=== PATIENT | female | born 1970 | race Hispanic/Latino ===

== ENCOUNTER 2021-04-21 12:37 | Emergency (ER) | payer SELFPAY ==
--- OUTSIDE RECORDS SUMMARY | 2021-04-21 12:40 | XMS REPORT | Continuity of Care Document ---
:1970 Author Organization [facility] Address [address] [place] [address] Dr. Alaniz [address] [place] [id number] Care Team Providers Name Role Phone Sarika MONTANO Attending Clinician Unavailable Sarika MONTANO Admitting Clinician Unavailable Problems This patient has no known problems. Allergies, Adverse Reactions, Alerts This patient has no known allergies or adverse reactions. Medications This patient has no known medications. Procedures This patient has no known procedures. Encounters Start End Encounter Admission Attending Care Care Encounter Source Date/Time Date/Time Type Type Clinicians Facility Department ID 2016-09-15 2016-09-16 Emergency [facility] [id number] [facility] 19:14:00 20:17:00 [facility] Results This patient has no known results.
[2021-04-21 16:25] LABS: Absolute Lymphocytes (CBC) 1.8 K/uL (0.7-4.9); Basophils % 0.6 % (0-1.3); Hematocrit 45.2 % (36.0-45.0); MPV 8.2 fL (7.6-11.3); RBC Red Blood Cell Count 5.63 M/uL (3.86-4.86)
[2021-04-21 16:28] LABS: Urine Blood Negative (Negative); Urine Glucose Negative (Negative); Urine Protein Negative (Negative)
--- NOTE | 2021-04-21 16:28 | RAD REPORT ---
EXAM DESCRIPTION: CT - Stone Protocol - 04/21/2021 3:45 pm CLINICAL HISTORY: Flank pain. ABD PAIN COMPARISON: No comparisons TECHNIQUE: Axial images were obtained without oral or IV contrast. Lack of contrast limits solid org an and vascular assessment. The [id number] spans the entirety of the system partially obscuring uppermost abdomen and lung bases. Coronal reformatted images were obtained and reviewed. All CT scans are performed using dose optimization technique as appropriate and may include automated exposure control or mA/KV adjustment according to patient size. FINDINGS: The lower lung carter are clear. Imaged portions of the liver and spleen show no suspicious findings on non-contrast imaging. The panc reas and adrenal glands are normal. No pathologic lymphadenopathy in the abdomen or pelvis. No urinary tract stones or obstructive uropathy. No bowel obstruction, free air, free fluid or abscess. Normal appendix noted. No significant bony abnormality. IMPRESSION: No urinary tract stones or obstructive uropathy.
[2021-04-21 17:10] LABS: Urine Bacteria <20 /HPF (<20); Urine RBC NONE SEEN /HPF (NONE SEEN)
[2021-04-21 17:19] LABS: ALT/SGPT 27 U/L (12-78); AST/SGOT 16 U/L (15-37); Albumin 4.2 g/dL (3.4-5.0); Alkaline Phosphatase 85 U/L (45-117); BUN Blood Urea Nitrogen 11 mg/dL (7-18); Bicarbonate 27 mmol/L (21-32); Bilirubin Direct < 0.1 mg/dL (0-0.2); Bilirubin Total 0.4 mg/dL (0.2-1.0); Glucose Level 97 mg/dL (74-106); Lipase 123 U/L (73-393); Potassium 4.3 mmol/L (3.5-5.1); Protein, Total 8.2 g/dL (6.4-8.2); Sodium Level 138 mmol/L (136-145)
--- NOTE | 2021-04-21 17:45 | EDPHYS ---
Physician Documentation [facility] Name: Suze Garcia Age: 50 yrs Sex: Female : 1970 Arrival Date: 04/21/2021 Time: 12:43 Bed 6 Private MD: ED Physician Irvin Henderson HPI: 04/21 15:58 This 50 yrs old Female presents to ER via Ambulatory with complaints of ma2 Abdominal Pain. 15:58 The patient presents with abdominal pain. Associated signs and symptoms: Pertinent ma2 negatives: blood in stools, diarrhea, fever, hematuria. Severity of pain: At its worst the pain was moderate in the emergency department the pain is unchanged. The patient has not experienced similar symptoms in the past. APPOINTMENT SETTER: 16:47 LMP N/A - Post-menopause al4 Historical: - Allergies: 12:58 No Known Allergies; ss - Home Meds: 12:58 None [Active]; ss - PMHx: 12:58 None; ss - PSHx: 12:58 ectopic ; ss - Immunization history:: Client reports receiving the 1st dose of the Covid vaccine. - Social history:: Smoking status: Patient denies any tobacco usage or history of. Patient/guardian denies using alcohol, street drugs, The patient lives with family. - Family history:: not pertinent. ROS: 15:58 Constitutional: Negative for fever, chills, and weight loss. ma2 15:58 All other systems are negative. Exam: 15:58 Constitutional: This is a well developed, well nourished patient who is awake, alert, ma2 and in no acute distress. Neck: Trachea midline, no thyromegaly or masses palpated, and no cervical lymphadenopathy. Supple, full range of motion without nuchal rigidity, or vertebral point tenderness. No Meningismus. Chest/axilla: Normal chest wall appearance and motion. Nontender with no deformity. No lesions are appreciated. Cardiovascular: Regular rate and rhythm with a normal S1 and S2. No gallops, murmurs, or rubs. Normal PMI, no JVD. No pulse deficits. Respiratory: Lungs have equal breath sounds bilaterally, clear to auscultation and percussion. No rales, rhonchi or wheezes noted. No increased work of breathing, no retractions or nasal flaring. Abdomen/GI: Soft, non-tender, with normal bowel sounds. No distension or tympany. No guarding or rebound. No evidence of tenderness throughout. Back: No spinal tenderness. No costovertebral tenderness. Full range of motion. 15:58 MS/ Extremity: Pulses equal, no cyanosis. Neurovascular intact. Full, normal range ma2 of motion. Neuro: Awake and alert, GCS 15, oriented to person, place, time, and situation. Cranial nerves II-XII grossly intact. Motor strength 5/5 in all extremities. Sensory grossly intact. Cerebellar exam normal. Normal gait. Vital Signs: 12:58 BP 173 / 104 (man/); Pulse 81; Resp 16; Temp 98.0(TE); Pulse Ox 100% on R/A; Weight ss 79.38 kg; Height 5 ft. 1 in. (154.94 cm); Pain 5/10; 15:07 BP 132 / 73; Pulse 72; Resp 18 S; Temp 98.5; Pulse Ox 98% on R/A; al4 16:23 BP 133 / 72; Pulse 72; Resp 18; Pulse Ox 99% ; al4 17:15 BP 134 / 82; Pulse 72; Resp 18 S; Pulse Ox 97% on R/A; al4 17:45 BP 110 / 72; Pulse 81; Resp 18 S; Pulse Ox 98% on R/A; al4 12:58 Body Mass Index 33.07 (79.38 kg, 154.94 cm) ss MDM: 14:58 Patient medically screened. [facility] 15:58 Differential diagnosis: diverticulitis, Dysmenorrhea, Endometriosis, gastritis, ma2 Hepatitis. 17:44 Data reviewed: vital signs, nurses notes. Counseling: I had a detailed discussion with ma2 the patient and/or guardian regarding: the historical points, exam findings, and any diagnostic results supporting the discharge/admit diagnosis, the presence of at least one elevated blood pressure reading (>120/80) during this emergency department visit, the need for outpatient follow up. Response to treatment: the patient's symptoms have markedly improved after treatment. 04/21 15:27 Order name: Basic Metabolic Panel; Complete Time: 17:43 [facility] 04/21 15:27 Order name: CBC with Diff; Complete Time: 16:33 [facility] 04/21 15:27 Order name: Hepatic Function; Complete Time: 17:43 ma2 04/21 15:27 Order name: Lipase; Complete Time: 17:43 ma2 04/21 15:27 Order name: Urine Microscopic Only; Complete Time: 17:43 co2 04/21 16:28 Order name: Urine Dipstick-Ancillary; Complete Time: 16:33 [facility] 04/21 15:27 Order name: Stone Protocol CT; Complete Time: 16:33 ma2 04/21 15:27 Order name: Urine Dipstick-Ancillary (obtain specimen); Complete Time: 16:48 co2 04/21 15:27 Order name: IV Saline Lock; Complete Time: 16:48 co2 04/21 15:27 Order name: NPO; Complete Time: 15:42 co2 04/21 16:31 Order name: Urine Dipstick-Ancillary [facility] 04/21 16:32 Order name: Labs - recollect needed: recollect green top hemolyzed; Complete Time: 16:48eb Administered Medications: No medications were administered Disposition Summary: 04/21/21 17:44 Discharge Ordered Location: Home ma2 Condition: Stable ma2 Diagnosis - Low back pain - left flank ma2 Followup: ma2 - With: Private Physician - When: Tomorrow - Reason: If symptoms return, Continuance of care Discharge Instructions: - Discharge Summary Sheet ma2 - Musculoskeletal Pain ma2 Forms: - Medication Reconciliation Form ma2 - Thank You Letter ma2 - Antibiotic Education ma2 - Prescription Opioid Use ma2 Prescriptions: - Cyclobenzaprine 10 mg Oral Tablet - take 1 tablet by ORAL route every 8 hours As needed; 30 tablet; Refills: 0, ma2 Product Selection Permitted - Diclofenac Sodium 75 mg Oral Tablet Sustained Release - take 1 tablet by ORAL route 2 times per day; 30 tablet; Refills: 0, Product ma2 Selection Permitted Signatures: Dispatcher [employer] [facility] Michelle Erickson RN RN Irvin Yates MD MD co2 Glory Bravo
--- NOTE | 2021-04-21 17:45 | ER ---
Nurse's Notes [facility] Name: Suze Garcia Age: 50 yrs Sex: Female : 1970 Arrival Date: 04/21/2021 Time: 12:43 Bed 6 Private MD: Diagnosis: Low back pain-left flank Presentation: 04/21 12:57 Chief complaint: Patient states: L lower back pain that began 4 days ago. Pt states, "I ss think it's just muscle, but my daughter is pushing more for it to be a kidney stone.". Coronavirus screen: Client denies travel out of the [place] in the last 14 days. Ebola Screen: Patient denies exposure to infectious person. Patient denies travel to an Ebola-affected area in the 21 days before illness onset. Initial Sepsis Screen: Does the patient meet any 2 criteria? No. Patient's initial sepsis screen is negative. Does the patient have a suspected source of infection? No. Patient's initial sepsis screen is negative. Risk Assessment: Do you want to hurt yourself or someone else? Patient reports no desire to harm self or others. Onset of symptoms was April 17, 2021. 12:57 Method Of Arrival: Ambulatory ss 12:57 Acuity: CHAPIN 3 ss PILATES COORDINATOR: 16:47 LMP N/A - Post-menopause al4 Historical: - Allergies: 12:58 No Known Allergies; ss - Home Meds: 12:58 None [Active]; ss - PMHx: 12:58 None; ss - PSHx: 12:58 ectopic ; ss - Immunization history:: Client reports receiving the 1st dose of the Covid vaccine. - Social history:: Smoking status: Patient denies any tobacco usage or history of. Patient/guardian denies using alcohol, street drugs, The patient lives with family. - Family history:: not pertinent. Screenin:16 Abuse screen: Denies threats or abuse. Nutritional screening: No deficits noted. al4 Tuberculosis screening: No symptoms or risk factors identified. Fall Risk No fall in past 12 months (0 pts). No IV (0 pts). Ambulatory Aid- None/Bed Rest/Nurse Assist (0 pts). Gait- Normal/Bed Rest/Wheelchair (0 pts) Mental Status- Oriented to own ability (0 pts). Total Andrade Fall Scale indicates No Risk (0-24 pts). Assessment: 15:08 General: Appears in no apparent distress. comfortable, Behavior is calm, cooperative, al4 appropriate for age, Patient reports that L lower back pain started around Saturday. Patient denies pain with urination, bowel movements, and denies nausea/vomiting/diarrhea. . Neuro: Level of Consciousness is awake, alert, obeys commands, Oriented to person, place, time. Cardiovascular: Heart tones present Capillary refill < 3 seconds Patient's skin is warm and dry. Respiratory: Airway is patent Respiratory effort is even, unlabored, Respiratory pattern is regular, symmetrical. GI: Abdomen is non-distended, Bowel sounds present X 4 quads. Abd is soft and non tender X 4 quads. Patient currently denies diarrhea, nausea, vomiting. : No signs and/or symptoms were reported regarding the genitourinary system. EENT: No signs and/or symptoms were reported regarding the EENT system. Derm: No signs and/or symptoms reported regarding the dermatologic system. Musculoskeletal: Reports L lower back pain. 15:08 Pain: Complains of pain in left low back Pain currently is 6 out of 10 on a pain scale. al4 16:19 Reassessment: No changes from previously documented assessment. Patient and/or family al4 updated on plan of care and expected duration. Pain level reassessed. Patient is alert, oriented x 3, equal unlabored respirations, skin warm/dry/pink. 17:14 Reassessment: No changes from previously documented assessment. Patient and/or family al4 updated on plan of care and expected duration. Pain level reassessed. Patient is alert, oriented x 3, equal unlabored respirations, skin warm/dry/pink. 17:28 Reassessment: pt stated her IV was causing pain. MD gave permission for RN to al4 discontinue. 18:13 Reassessment: No changes from previously documented assessment. Patient and/or family al4 updated on plan of care and expected duration. Pain level reassessed. Patient is alert, oriented x 3, equal unlabored respirations, skin warm/dry/pink. Vital Signs: 12:58 BP 173 / 104 (man/); Pulse 81; Resp 16; Temp 98.0(TE); Pulse Ox 100% on R/A; Weight ss 79.38 kg; Height 5 ft. 1 in. (154.94 cm); Pain 5/10; 15:07 BP 132 / 73; Pulse 72; Resp 18 S; Temp 98.5; Pulse Ox 98% on R/A; al4 16:23 BP 133 / 72; Pulse 72; Resp 18; Pulse Ox 99% ; al4 17:15 BP 134 / 82; Pulse 72; Resp 18 S; Pulse Ox 97% on R/A; al4 17:45 BP 110 / 72; Pulse 81; Resp 18 S; Pulse Ox 98% on R/A; al4 12:58 Body Mass Index 33.07 (79.38 kg, 154.94 cm) ED Course: 12:43 Patient arrived in ED. ds1 12:58 Triage completed. 12:58 Arm band placed on right wrist. 14:51 Bea Bhatt, BELKIS is Primary Nurse. 1 14:51 Patient placed in an exam room, on a stretcher. 1 14:58 Irvin Henderson MD is Attending Physician. ma2 15:16 Patient has correct armband on for positive identification. Bed in low position. Call al4 light in reach. Side rails up X 1. 15:22 David Tan is Primary Nurse. al4 15:[address] In Process Unspecified. EDVT 16:00 Missed attempt(s): 20 gauge in right antecubital area. Bleeding controlled, band aid al4 applied, catheter tip intact. 16:46 Inserted saline lock: 20 gauge in left antecubital area, using aseptic technique. al4 16:48 Urine Dipstick-Ancillary Sent. al4 17:29 IV discontinued, intact, bleeding controlled, No redness/swelling at site. Pressure al4 dressing applied. 18:16 No provider procedures requiring assistance completed. al4 Administered Medications: No medications were administered Outcome: 17:44 Discharge ordered by . ma2 18:16 Discharged to home ambulatory. al4 18:16 Condition: stable 18:16 Discharge instructions given to patient, Instructed on discharge instructions, follow up and referral plans. medication usage, Demonstrated understanding of instructions, follow-up care, medications, Prescriptions given X 2. 18:17 Patient left the ED. al4 Signatures: Dispatcher [facility] Marija Tena ds1 Michelle Erickson, BELKIS RN ss Irvin Henderson MD MD ma2 Bea Bhatt RN RN ll1 David Tan al4 Corrections: (The following items were deleted from the chart) 15: 15:08 Musculoskeletal: No signs and/or symptoms reported regarding the musculoskeletal al4 system. al4 15: 15:07 Temp 98.5F; al4 al4 15:27 15:08 General: Appears in no apparent distress. comfortable, Behavior is calm, al4 cooperative, appropriate for age, Patient reports that L lower back pain started around [place]. Patient denies pain with urination, bowel movements, and no nausea/vomiting/diarrhea. . al4
[2021-04-21 18:29] VITALS: TEMP 98.5
[2021-04-21 18:35] VITALS: BP 110/72; O2SAT 98
== END 2021-04-21 18:17 | disposition home or self-care (01) ==
LOC: ER 12:37
DX: R10.9 Unspecified abdominal pain (principal)
CPT/HCPCS: 36415; 74176; 76377; 80048; 80076; 81003; 81015; 83690; 85025; 99284